=== PATIENT | male | born 1940 | race African-American/Black ===

== ENCOUNTER → 2019-10-14 | Outpatient (CLI) | payer MEDICARE, MEDICAID, OTHER ==
[~2019-10-14] MED LIST: ALBU18HF2 IH; AMLO5TAB88 PO; CEFAZOLIN SODIUM 1000MG/VIAL ONE; CHOL200077 MT; FAMO-135 MT; FENTANYL CITRATE/PF 50MCG/ML 5ML VIAL ONE; GABA-531 MT; GLYCOPYRROLATE 0.2 MG/ML 2ML VIAL ONE; HYDR25TA MT; LOV40 SQ; METF-414 MT; METF500T PO; MIDAZOLAM HCL 2 MG/2 ML VIAL ONE; NEOSTIGMINE METHYLSULFATE 1MG/ML 10 ML VIAL ONE; ONDANSETRON HCL 4MG/2ML INJ ONE; PHENYLEPHRINE HCL 10 MG/ML 1ML (IV VIAL) IV ONE; PROPOFOL 200MG/20ML VIAL IV ONE; ROCURONIUM BROMIDE 10MG/ML VIAL 5ML IV ONE; TERA10CA4 MT; WARF6TAB22 PO
== END | disposition home or self-care (01) ==
LOC: LAB 14:08
PROVIDERS: ATTEND Neurological Surgery
DX: Z01.818 Encounter for other preprocedural examination (principal); Z11.59 Encounter for screening for other viral diseases
CPT/HCPCS: J0690; U0003-CS

== ENCOUNTER 2019-10-30 10:48 | Inpatient (IN) | payer MEDICARE, OTHER ==
[~2019-10-30] VITALS: Ht 182.9 cm; Wt 92.1 kg
[~2019-10-30 10:48] MED LIST changes: -CEFAZOLIN SODIUM 1000MG/VIAL ONE; -FENTANYL CITRATE/PF 50MCG/ML 5ML VIAL ONE; -GLYCOPYRROLATE 0.2 MG/ML 2ML VIAL ONE; -METF-414 MT; -MIDAZOLAM HCL 2 MG/2 ML VIAL ONE; -NEOSTIGMINE METHYLSULFATE 1MG/ML 10 ML VIAL ONE; -ONDANSETRON HCL 4MG/2ML INJ ONE; -PHENYLEPHRINE HCL 10 MG/ML 1ML (IV VIAL) IV ONE; -PROPOFOL 200MG/20ML VIAL IV ONE; -ROCURONIUM BROMIDE 10MG/ML VIAL 5ML IV ONE
[2019-10-30] MEDS ORDERED: MORPHINE SULFATE 4 MG/ML CPJ (NOT FOR IM USE) IV ONE (12:30)
[2019-10-30 12:51] LABS: BASOPHILS % 0.9 % (0.0-2.0); EOSINOPHILS % 0.8 % (0.0-5.0); HEMOGLOBIN. 11.8 g/dL (14.0-18.0); LYMPHOCYTES % 16.5 % (20.0-50.0); MEAN CORPUSCULAR HEMOGLOBIN 32.1 pg (28.0-32.0); MEAN CORPUSCULAR VOLUME 92.7 fL (80.0-94.0); MEAN PLATELET VOLUME 7.2 fl (7.4-10.4); MONOCYTES % 6.3 % (2.0-8.0); NEUTROPHILS % 75.5 % (40.0-76.0); PLATELET 511 x1000/uL (130-400); RED BLOOD CELL COUNT 3.67 mill/uL (4.7-6.1); RED CELL DISTRIBUTION WIDTH 14.8 % (11.6-14.6)
[2019-10-30 12:57] LABS: CHLORIDE 104 mEq/L (98-107)
[2019-10-30 12:58] LABS: PROTHROMBIN TIME 11.3 sec (9.6-11.0)
[2019-10-30 18:06] LABS: CLARITY URINE CLEAR (CLEAR); COLOR URINE DARK YELLOW (YELLOW); KETONES URINE NEGATIVE (NEGATIVE); LEUKOCYTE ESTERASE URINE NEGATIVE (NEGATIVE); NITRITE URINE NEGATIVE (NEGATIVE); OCCULT BLOOD URINE NEGATIVE (NEGATIVE); PH URINE 5.5 (4.5-8.0); PROTEIN URINE TRACE (NEGATIVE); SPECIFIC GRAVITY URINE 1.029 (1.005-1.030)
[2019-10-30 20:00] VITALS: BP_SYST 143; BP_DIAS 80; BP_DIAS 88
[2019-10-30] MEDS: HYDROCODONE/ACETAMINOPHEN 5/325MG TABLET PO PRN (20:56)
[2019-10-30] MEDS ORDERED: HEPARIN 5000 UNITS/ML VIAL SUBCUT SCH (21:00)
[2019-10-31] MEDS ORDERED: GABAPENTIN 300MG CAPSULE PO PRN (02:45)
[2019-10-31 04:00] VITALS: BP 136/76
[2019-10-31] MEDS ORDERED: WARFARIN SODIUM 3MG TABLET PO SCH (06:00)
[2019-10-31] MEDS: HYDROCODONE/ACETAMINOPHEN 5/325MG TABLET PO PRN ×3 (06:13→20:48)
[2019-10-31 08:00] VITALS: BP 127/64
[2019-10-31] MEDS: AMLODIPINE 5MG TABLET PO SCH (09:00)
[2019-10-31] MEDS: CHOLECALCIFEROL (D3) 1000 UNIT TABLET PO SCH (09:00)
[2019-10-31] MEDS: DEXT 5%/LACTATED RINGERS 1,000 ML IV SCH ×2 (10:00→23:30)
[2019-10-31 12:00] VITALS: BP 131/74
[2019-10-31 15:55] LABS: HEPATITIS B SURFACE ANTIGEN NEGATIVE
[2019-10-31 16:00] VITALS: BP 149/79
[2019-10-31 16:25] LABS: HEPATITIS A AB IGM NEGATIVE (NEGATIVE)
[2019-10-31 20:00] VITALS: BP 149/83
[2019-10-31] MEDS: TERAZOSIN HCL 1MG CAPSULE PO SCH (23:28)
[2019-11-01] VITALS (10 sets, daily range): BP systolic 110–156; BP diastolic 52–89
[2019-11-01 07:02] LABS: BASOPHILS % 0.6 % (0.0-2.0); EOSINOPHILS % 1.4 % (0.0-5.0); HEMATOCRIT. 30.2 % (42.0-52.0); HEMOGLOBIN. 10.4 g/dL (14.0-18.0); LYMPHOCYTES % 17.1 % (20.0-50.0); MEAN CORPUSCULAR HEMOGLOBIN 31.6 pg (28.0-32.0); MEAN CORPUSCULAR VOLUME 91.4 fL (80.0-94.0); MONOCYTES % 8.6 % (2.0-8.0); NEUTROPHILS % 72.3 % (40.0-76.0); PLATELET 490 x1000/uL (130-400)
[2019-11-01 07:22] LABS: CHLORIDE 111 mEq/L (98-107)
[2019-11-01] MEDS: HYDROCODONE/ACETAMINOPHEN 5/325MG TABLET PO PRN (07:22)
[2019-11-01] MEDS ORDERED: CEFAZOLIN 1000MG PREMIX 50 ML IV ONE ×2 (07:30→07:49)
[2019-11-01] MEDS ORDERED: CEFAZOLIN 1000MG PREMIX 50 ML IV NR ×2 (07:45)
[2019-11-01] MEDS ORDERED: LIDOCAINE HCL 1% 20ML VIAL (Pyxis) INJ ONE (07:46)
[2019-11-01] MEDS ORDERED: IOHEXOL-300 100 ML BOTTLE ONE (07:46)
[2019-11-01] MEDS ORDERED: SODIUM BICARBONATE 4% (2.4MEQ) 5ML VIAL IV ONE (07:46)
[2019-11-01] MEDS ORDERED: PHYTONADIONE 10MG/ML AMP SUBCUT SCH (09:00)
[2019-11-01] MEDS: CHOLECALCIFEROL (D3) 1000 UNIT TABLET PO SCH (09:00)
[2019-11-01] MEDS: AMLODIPINE 5MG TABLET PO SCH (09:32)
[2019-11-01] MEDS ORDERED: BACITRACIN 50,000 UNITS/VIAL ONE (09:59)
[2019-11-01] MEDS ORDERED: THROMBIN (BOVINE) 5000 UNITS/VIAL TOP ONE (09:59)
[2019-11-01] MEDS ORDERED: LIDOCAINE HCL/EPINEPHRINE 1%-EPI 1:100,000 20 ML VIAL ONE (10:09)
[2019-11-01] MEDS ORDERED: PROPOFOL 200MG/20ML VIAL IV ONE ×2 (10:11→13:13)
[2019-11-01] MEDS ORDERED: MIDAZOLAM HCL 2 MG/2 ML VIAL ONE (10:11)
[2019-11-01] MEDS ORDERED: FENTANYL CITRATE/PF 50MCG/ML 5ML VIAL ONE (10:11)
[2019-11-01] MEDS ORDERED: ROCURONIUM BROMIDE 10MG/ML VIAL 5ML IV ONE (10:11)
[2019-11-01] MEDS ORDERED: LIDOCAINE HCL/PF 1% 10 MG/ML 5ML VIAL ONE (10:14)
[2019-11-01] MEDS ORDERED: EPHEDRINE SULFATE 50MG/ML VIAL ONE (12:58)
[2019-11-01] MEDS ORDERED: HYDRALAZINE 20MG/ML VIAL IV PRN (13:15)
[2019-11-01] MEDS ORDERED: NEOSTIGMINE METHYLSULFATE 1MG/ML 10 ML VIAL ONE (13:26)
[2019-11-01] MEDS ORDERED: GLYCOPYRROLATE 0.2 MG/ML 2ML VIAL ONE (13:26)
[2019-11-01] MEDS ORDERED: HYDRALAZINE 5 MG in SODIUM CHLORIDE 0.9% 49.75 ML IV PRN (13:45)
[2019-11-01] MEDS: FENTANYL CITRATE/PF 50MCG/ML 2ML VIAL IV PRN ×2 (13:54→14:04)
[2019-11-01] MEDS ORDERED: CEFAZOLIN SODIUM 1000MG/VIAL IV SCH (14:00)
[2019-11-01] MEDS ORDERED: ONDANSETRON HCL 4MG/2ML INJ IV NR (14:00)
[2019-11-01] MEDS: HYDROMORPHONE HCL/PF 2MG/ML CPJ IV PRN ×2 (14:06→14:40)
[2019-11-01] MEDS: MORPHINE SULFATE 4 MG/ML CPJ (NOT FOR IM USE) IV PRN ×3 (16:54→21:41)
[2019-11-01] MEDS: CEFAZOLIN 1000MG PREMIX 50 ML IV SCH (17:06)
[2019-11-01] MEDS ORDERED: WARFARIN SODIUM 3MG TABLET PO SCH (18:00)
[2019-11-01] MEDS: TERAZOSIN HCL 1MG CAPSULE PO SCH (21:53)
[2019-11-02] VITALS: BP 109/64
[2019-11-02] MEDS: CEFAZOLIN 1000MG PREMIX 50 ML IV SCH ×4 (00:06→23:55)
[2019-11-02] MEDS: MORPHINE SULFATE 4 MG/ML CPJ (NOT FOR IM USE) IV PRN (00:08)
[2019-11-02 04:00] VITALS: BP 110/68
[2019-11-02 08:17] VITALS: BP 159/85
[2019-11-02] MEDS: CHOLECALCIFEROL (D3) 1000 UNIT TABLET PO SCH (09:00)
[2019-11-02] MEDS: AMLODIPINE 5MG TABLET PO SCH (09:00)
[2019-11-02] MEDS: TERAZOSIN HCL 1MG CAPSULE PO SCH (09:55)
[2019-11-02] MEDS ORDERED: HYDROMORPHONE HCL 2MG TABLET PO PRN (11:15)
[2019-11-02 12:03] VITALS: BP 123/68
[2019-11-02] MEDS: HYDROCODONE/ACETAMINOPHEN 10/325MG TABLET PO PRN ×2 (14:38→21:51)
[2019-11-02] MEDS ORDERED: IPRATROPIUM/ALBUTEROL 0.5-3(2.5)MG/3ML NEB HHN PRN (17:30)
[2019-11-02] MEDS ORDERED: IPRATROPIUM/ALBUTEROL 0.5-3(2.5)MG/3ML NEB HHN SCH (18:00)
[2019-11-02 20:00] VITALS: BP 137/76
[2019-11-03] VITALS: BP 136/77
[2019-11-03 04:00] VITALS: BP 155/88
[2019-11-03 07:14] LABS: BASOPHILS % 0.5 % (0.0-2.0); EOSINOPHILS % 1.1 % (0.0-5.0); HEMATOCRIT. 29.3 % (42.0-52.0); HEMOGLOBIN. 10.1 g/dL (14.0-18.0); LYMPHOCYTES % 10.8 % (20.0-50.0); MEAN CORPUSCULAR HEMOGLOBIN 31.5 pg (28.0-32.0); MONOCYTES % 8.3 % (2.0-8.0); NEUTROPHILS % 79.3 % (40.0-76.0); PLATELET 433 x1000/uL (130-400); RED BLOOD CELL COUNT 3.22 mill/uL (4.7-6.1)
[2019-11-03 07:35] LABS: CHLORIDE 108 mEq/L (98-107)
[2019-11-03 08:00] VITALS: BP 146/77
[2019-11-03] MEDS: CEFAZOLIN 1000MG PREMIX 50 ML IV SCH ×2 (08:00→09:22)
[2019-11-03] MEDS: CHOLECALCIFEROL (D3) 1000 UNIT TABLET PO SCH (09:14)
[2019-11-03] MEDS: HYDROCODONE/ACETAMINOPHEN 10/325MG TABLET PO PRN ×2 (09:15→16:50)
[2019-11-03] MEDS: AMLODIPINE 5MG TABLET PO SCH (09:16)
[2019-11-03 12:00] VITALS: BP 130/78
[2019-11-03 16:00] VITALS: BP 136/74
[2019-11-03 18:28] VITALS: BP 133/72
== END 2019-11-03 18:45 | disposition home or self-care (01) | DRG 907 ==
LOC: ER 10:48 → 6EST 13:22 → ENRESERV 16:37
PROVIDERS: ADMIT Internal Medicine; ATTEND Internal Medicine
PROC: 009U0ZZ Drainage of Spinal Canal, Open Approach (ICD-10-PCS; principal; 2019-11-01)
PROC: 06H03DZ Insertion of Intraluminal Device into Inferior Vena Cava, Percutaneous Approach (ICD-10-PCS; 2019-11-01)
PROC: B5191ZZ Fluoroscopy of Inferior Vena Cava using Low Osmolar Contrast (ICD-10-PCS; 2019-11-01)
DX: G97.63 Postprocedural seroma of a nervous system organ or structure following a nervous system procedure (principal); S06.4X0A Epidural hemorrhage without loss of consciousness, initial encounter; G82.20 Paraplegia, unspecified; T81.31XA Disruption of external operation (surgical) wound, not elsewhere classified, initial encounter; G95.20 Unspecified cord compression; G95.9 Disease of spinal cord, unspecified; I82.433 Acute embolism and thrombosis of popliteal vein, bilateral; E11.9 Type 2 diabetes mellitus without complications; D64.9 Anemia, unspecified; I71.2 Thoracic aortic aneurysm, without rupture; J44.9 Chronic obstructive pulmonary disease, unspecified; I10 Essential (primary) hypertension; N40.0 Benign prostatic hyperplasia without lower urinary tract symptoms; R26.9 Unspecified abnormalities of gait and mobility; X58.XXXA Exposure to other specified factors, initial encounter; B19.20 Unspecified viral hepatitis C without hepatic coma; R74.0 Nonspecific elevation of levels of transaminase and lactic acid dehydrogenase [LDH]; M19.90 Unspecified osteoarthritis, unspecified site; Z79.01 Long term (current) use of anticoagulants; Z79.84 Long term (current) use of oral hypoglycemic drugs; Z95.828 Presence of other vascular implants and grafts; Z88.8 Allergy status to other drugs, medicaments and biological substances; Z91.018 Allergy to other foods; Z79.899 Other long term (current) drug therapy; Z86.711 Personal history of pulmonary embolism; Z03.818 Encounter for observation for suspected exposure to other biological agents ruled out; Y93.89 Activity, other specified; Y92.89 Other specified places as the place of occurrence of the external cause; Y99.8 Other external cause status
CPT/HCPCS: 36415; 37191; 72100; 72148; 76000; 76700; 80048; 80053; 80076; 81003; 84145; 85025; 86705; 86709; 86803; 86850; 86900; 87070; 87075; 87077; 87186; 87340; 88304; 93970; 96374; 97162; 99285; C1769; C1880; J0690; J1170; J1644; J2250; J2270; J2704; J2710; J3010; J3430; J3490; J7121; Q9967; U0003-CS